=== PATIENT | female | born 1930 | race Caucasian/White ===

== ENCOUNTER → 2016-06-26 | Outpatient (CLI) | payer OTHER, BC ==
[~2016-06-26] MED LIST: CALCTAB5 PO; CHOL100010 PO; FLUO10CA48 PO; LEVO-14 PO; MULT-506 PO
--- NOTE | 2016-06-27 07:42 | MAMMOGRAPHY REPORT ---
BILATERAL DIGITAL SCREENING MAMMOGRAM WITH CAD: 06/26/2016 CLINICAL HISTORY: Routine screening. Patient has no complaints. TECHNIQUE: Current study was also evaluated with a Computer Aided Detection (CAD) system. Bilatera l CC and MLO views were obtained. COMPARISON: Comparison is made to exams dated: 06/21/2015 mammogram, 06/20/2014 mammogram, 06/14/2013 mammogram, 06/10/2012 ultrasound, 06/10/2012 mammogram, and 06/05/2011 mammogram - [facility]. BREAST COMPOSITION: The tissue of both breasts is heterogeneously dense, which may obscure small ma sses. FINDINGS: No suspicious masses, calcifications, or areas of architectural distortion are noted in e ither breast. There has been no significant interval change compared to prior exams. Scattered bilat eral benign-appearing calcifications are not significantly changed. IMPRESSION: ACR BI-RADS CATEGORY 2: BENIGN There is no mammographic evidence of malignancy. A 1 year screening mammogram is recommended. The p atient will receive written notification of the results. Approximately 10% of breast cancers are not detected with mammography. A negative mammographic repor t should not delay biopsy if a clinically suggestive mass is present. Shannon Jarrell M.D. /:06/26/2016 14:55:41 Egg Pasteurizer: Lyudmila CHAMBERS)(M), [facility] letter sent: Normal 1/2 BI-RADS Code: ACR BI-RADS Category 2: Benign
== END | disposition home or self-care (01) ==
LOC: C.MAMM 09:03
PROVIDERS: ATTEND Family Medicine
DX: Z12.31 Encounter for screening mammogram for malignant neoplasm of breast (principal)

== ENCOUNTER → 2016-10-16 | Outpatient (CLI) | payer OTHER, BC ==
--- NOTE | 2016-10-16 09:28 | DIAGNOSTIC IMAGING REPORT ---
TWO VIEW CHEST CLINICAL HISTORY: Cough. FINDINGS: PA and lateral chest radiographs are obtained. No prior studies are available for comparison at the time of dictation. The PA view is degraded by patient rotation The heart is top normal for projection and there is atherosclerotic calcification of the thoracic aorta. The pulmonary vasculature is noncongested. A hiatal hernia is noted. A calcified granuloma is seen at the left lung base. The lungs and pleural spaces are otherwise clear. There is no pneumothorax. The skeletal structures are osteopenic. The bony thorax appears intact. Degenerative change is noted in the thoracic spine. IMPRESSION: 1. No active disease in the chest. 2. Hiatal hernia. Electronically signed by: Paul Guzman M.D. 10/16/2016 9:26 AM Dictated Date/Time: 10/16/2016 9:25 AM
== END | disposition home or self-care (01) ==
LOC: C.RAD 09:01
PROVIDERS: ATTEND Family Medicine
DX: R05 Cough (principal); K44.9 Diaphragmatic hernia without obstruction or gangrene

== ENCOUNTER → 2017-04-13 | Outpatient (CLI) | payer OTHER, BC ==
[2017-04-13 09:55] LABS: BASO % 0.9 %; BASO ABS # 0.04 K/uL (0-0.2); EOS % 11.1 %; EOS ABS # 0.51 K/uL (0-0.5); HEMATOCRIT 41.5 % (37-47); HEMOGLOBIN 13.9 g/dL (12.0-16.0); LYMPH % 30.5 %; MEAN CELL VOLUME 94.7 fL (80-100); MEAN CORPUSCULAR HEMOGLOBIN 31.7 pg (25-34); MEAN CORPUSCULAR HGB CONC 33.5 g/dl (32-36); MEAN PLATELET VOLUME 9.8 fL (7.4-10.4); MONO % 13.9 %; MONO ABS # 0.64 K/uL (0.11-0.59); NEUT % 43.6 %; PLATELET COUNT 264 K/uL (130-400); RED CELL DISTRIBUTION WIDTH CV 13.1 % (11.5-14.5); RED CELL DISTRIBUTION WIDTH SD 45.4 fL (36.4-46.3); WHITE BLOOD COUNT 4.59 K/uL (4.8-10.8)
[2017-04-13 10:16] LABS: ALBUMIN 3.2 gm/dl (3.4-5.0); ALT/SGPT 24 U/L (12-78); AST/SGOT 23 U/L (15-37); BLOOD UREA NITROGEN 13 mg/dl (7-18); CALCIUM 9.2 mg/dl (8.5-10.1); CARBON DIOXIDE 32 mmol/L (21-32); GLUCOSE 119 mg/dl (70-99); POTASSIUM 3.9 mmol/L (3.5-5.1); SODIUM 137 mmol/L (136-145)
[2017-04-13 10:27] LABS: ALKALINE PHOSPHATASE 110 U/L (45-117)
== END | disposition home or self-care (01) ==
LOC: C.LAB 08:15
PROVIDERS: ATTEND Family Medicine
DX: R41.3 Other amnesia (principal); R73.02 Impaired glucose tolerance (oral); Z68.27 Body mass index [BMI] 27.0-27.9, adult; E78.5 Hyperlipidemia, unspecified

== ENCOUNTER → 2017-06-29 | Outpatient (CLI) | payer OTHER, BC ==
--- NOTE | 2017-06-30 07:40 | MAMMOGRAPHY REPORT ---
BILATERAL DIGITAL SCREENING MAMMOGRAM TOMOSYNTHESIS WITH CAD: 06/29/2017 CLINICAL HISTORY: Routine screening examination. TECHNIQUE: Breast tomosynthesis in addition to standard 2D mammography was performed. Current study was also evaluated with a Computer Aided Detection (CAD) system. COMPARISON: Comparison is made to exams dated: 06/26/2016 mammogram, 06/21/2015 mammogram, 06/20/2014 ma mmogram, 06/14/2013 mammogram, 06/10/2012 ultrasound, and 06/10/2012 mammogram - [facility] enter. BREAST COMPOSITION: The tissue of both breasts is heterogeneously dense, which may obscure small mas ses. FINDINGS: No suspicious mass, architectural distortion or cluster of microcalcifications is seen. T here are diffuse bilateral coarse rodlike secretory calcifications. IMPRESSION: ACR BI-RADS CATEGORY 1: NEGATIVE There is no mammographic evidence of malignancy. A 1 year screening mammogram is recommended. The pa tient will receive written notification of the results. Approximately 10% of breast cancers are not detected with mammography. A negative mammographic report should not delay biopsy if a clinically suggestive mass is present. Vickie Elias M.D. ay/:06/29/2017 15:01:38 Per Diem: Adry PANG(Kailey)(M), [facility] letter sent: Normal 1/2 BI-RADS Code: ACR BI-RADS Category 1: Negative
== END | disposition home or self-care (01) ==
LOC: C.MAMM 09:12
PROVIDERS: ATTEND Family Medicine
DX: Z12.31 Encounter for screening mammogram for malignant neoplasm of breast (principal)